=== PATIENT | male | born 1990 | race Caucasian/White ===

== ENCOUNTER 2017-10-17 21:24 | Emergency (ER) | payer SELFPAY ==
[~2017-10-17] VITALS: Ht 190.5 cm; Wt 102.0 kg
[2017-10-17] MEDS ORDERED: CEPHALEXIN500 MG PO (22:32)
[2017-10-17 23:39] LABS: URINE BILIRUBIN - DIPSTICK NEGATIVE (NEGATIVE); URINE BLOOD DIPSTICK SMALL (NEGATIVE); URINE CLARITY TURBID; URINE COLOR YELLOW; URINE GLUCOSE - DIPSTICK NEGATIVE (NEGATIVE); URINE KETONE NEGATIVE (NEGATIVE); URINE LEUK ESTERASE SMALL (NEGATIVE); URINE NITRITE - DIPSTICK NEGATIVE (Negative); URINE PH 5.5 (4.5-8.0); URINE PROTEIN - DIPSTICK NEGATIVE (NEG-TRACE); URINE SPECIFIC GRAVITY >=1.030; URINE UROBILINOGEN - DIPSTICK 0.2 E.U./dL (0.2)
[2017-10-17 23:41] VITALS: BP 148/77
[2017-10-17 23:48] LABS: URINE BACTERIA FEW hpf; URINE MUCUS MODERATE hpf (NONE-FEW); URINE SQUAMOUS EPITHELIAL CELL FEW EPI/hpf (0-FEW); URINE WBC 50-100 WBC/hpf (0-5)
== END 2017-10-17 23:40 | disposition home or self-care (01) | DRG 951 ==
LOC: ED 21:24
PROVIDERS: Family Medicine
DX: Z20.2 Contact with and (suspected) exposure to infections with a predominantly sexual mode of transmission (principal); R30.0 Dysuria

== ENCOUNTER 2018-04-13 11:27 | Emergency (ER) | payer SELFPAY ==
[~2018-04-13] VITALS: Ht 190.5 cm; Wt 104.0 kg
[~2018-04-13 11:27] MED LIST: CEPHALEXIN500 MG PO
[2018-04-13] MEDS ORDERED: BENADRYL 50MG C50 MG PO (11:49)
[2018-04-13] MEDS ORDERED: MEDDOSEPAK PO (11:49)
[2018-04-13] MEDS ORDERED: PEPCID20 MG PO (11:49)
[2018-04-13 12:07] VITALS: BP 158/77
== END 2018-04-13 12:07 | disposition home or self-care (01) | DRG 607 ==
LOC: ED 11:27
DX: R21 Rash and other nonspecific skin eruption (principal); L29.9 Pruritus, unspecified